=== PATIENT | female | born 1965 | race Caucasian/White ===

== ENCOUNTER 2016-12-02 05:54 | Emergency (ER) | payer SELFPAY ==
[~2016-12-02] VITALS: Ht 180.3 cm; Wt 109.0 kg
[2016-12-02 05:56] VITALS: BP 145/66; PULSE 80; RESP 16; TEMP 97.7; O2SAT 97
--- NOTE | 2016-12-02 06:16 | PD ---
HPI . Spider bite Chief Complaint: Skin Problem Time Seen by Provider: 06:10 Travel History International Travel<30 days: No Contact w/Intl Traveler<30days: No Traveled to known affect area: No History of Present Illness HPI Patient presents stating that she has had a wound on her left leg from a spider bite for 3 months. She states that she has been seen at an outside emergency department twice and by a primary care physician wants and has had 3 different courses of antibiotics. Despite that, the wound has not healed. She states that she is treating it at home with antibacterial soap and water and dressings. She states that she presents to us now because it is hurting worse than usual. There has been no drainage. She has not been running a fever. [id number]: Left lower leg QUALITY: Burning DURATION: 3 months TIMING: Continuously ASSOCIATED SYMPTOMS: No associated fever and no drainage PFSH Past Medical History Cardiovascular Problems: Yes (AFIB) Respiratory: Yes (ASTHMA) ?: Not LMP: TUBAL Social History Tobacco Use: No Allergies-Medications (Allergen,Severity, Reaction): Coded Allergies: Codeine (Verified Allergy, Mild, HIVES, 12/02/16) Review of Systems General / Constitutional: No: Fever Skin: Positive Lesions Physical Exam Narrative GENERAL: Awake and alert and in no acute distress. SKIN: Warm and dry. She has an area of darkened skin on her left lateral lower leg. It is not red or hot. There is a central ulceration. The ulceration has an eschar. There is no purulent drainage. There is no fluctuance. CARDIOVASCULAR: Regular rate and rhythm. RESPIRATORY: No accessory muscle use. MUSCULOSKELETAL: No obvious deformities. No edema. NEUROLOGICAL: Awake and alert. No obvious cranial nerve deficits. Motor grossly within normal limits. Normal speech. PSYCHIATRIC: Appropriate mood and affect; insight and judgment normal. Data Data Last Documented VS Vital Signs Date Time Temp Pulse Resp B/P Pulse Ox O2 Delivery O2 Flow Rate FiO2 12/02/16 05:56 97.7 80 16 145/66 97 Room Air MDM Medical Decision Making Medical Screen Exam Complete: Yes Emergency Medical Condition: Yes Differential Diagnosis My differential diagnosis includes but is not limited to localized wound infection, cellulitis, abscess Narrative Course Patient presents with a nonhealing ulcer on her left lateral lower leg. It does not appear infected. My assessment is that she is chronically irritating the ulcer preventing it from healing. She is keeping it covered at all times. Diagnosis Primary Impression: Leg ulcer, left Qualified Code: L97.921 - Leg ulcer, left, limited to breakdown of skin Patient Instructions: General Instructions Additional Instructions: Clean the wound only with soap and water. No peroxide. No occlusive dressing. Allow the wound to get some air. Follow-up with your primary care physician for ongoing monitoring of the wound as it heals. Disposition: 01 DISCHARGE HOME Condition: Stable Mandy Paredes MD Dec 02, 2016 06:16
[2016-12-02] MEDS ORDERED: ALBU6.7H INH (06:52)
== END 2016-12-02 06:52 | disposition home or self-care (01) ==
LOC: NEPC 05:54
DX: L97.929 Non-pressure chronic ulcer of unspecified part of left lower leg with unspecified severity (principal); I48.91 Unspecified atrial fibrillation
CPT/HCPCS: 99282